=== PATIENT | female | born 1965 | race Caucasian/White ===

== ENCOUNTER → 2018-04-03 16:19 | Outpatient (CLI) | payer OTHER, MEDICAID, SELFPAY ==
[2018-04-03 17:44] LABS: Hematocrit 35.1 % (36-46)
[2018-04-03 17:48] LABS: BUN Creatinine Ratio 26.4 (6-22); Blood Urea Nitrogen 37 mg/dL (7-17); Calcium 9.4 mg/dL (8.4-10.2); Carbon Dioxide 28 mmol/L (22-32); Chloride 94 mmol/L (98-107); Estimated Glomerular Filt Rate 39.6 mL/min (>60); Glucose 335 mg/dL (70-100); HEMOLYSIS < 15 (0-50); Potassium 4.7 mmol/L (3.4-5.1); Sodium 135 mmol/L (137-145)
[2018-04-03 17:59] LABS: B Type Natriuretic Peptide < 100.0 (<100)
[2018-04-03 19:50] LABS: Protein (Total) Urine Random 8 mg/dL (0-12); Protein Creatinine Ratio Urine 0.13 GRAM/24H
[2018-04-03 20:05] LABS: Vitamin D 25 Hydroxy (D3) 39.8 ng/mL (30.0-100.0)
[2018-04-05 15:23] LABS: Parathyroid Hormone Int 100 pg/mL (14-64)
== END ==
PROVIDERS: Family Provider Student in an Organized Health Care Education/Training Program; PCP Student in an Organized Health Care Education/Training Program; Visit Provider Family Medicine
DX: F33.2 Major depressive disorder, recurrent severe without psychotic features (principal); N05.9 Unspecified nephritic syndrome with unspecified morphologic changes; N00.9 Acute nephritic syndrome with unspecified morphologic changes; D64.9 Anemia, unspecified; N25.81 Secondary hyperparathyroidism of renal origin; R80.9 Proteinuria, unspecified
CPT/HCPCS: 36415; 80048; 82306; 82570; 83880; 83970; 84156; 85014; 85018

== ENCOUNTER → 2018-05-01 16:17 | Outpatient (CLI) | payer OTHER, MEDICAID, SELFPAY ==
[2018-05-01 17:43] LABS: BUN Creatinine Ratio 24.2 (6-22); Blood Urea Nitrogen 29 mg/dL (7-17); Calcium 9.4 mg/dL (8.4-10.2); Carbon Dioxide 28 mmol/L (22-32); Chloride 93 mmol/L (98-107); Estimated Glomerular Filt Rate 47.4 mL/min (>60); Glucose 174 mg/dL (70-100); HEMOLYSIS < 15 (0-50); Potassium 3.9 mmol/L (3.4-5.1); Sodium 134 mmol/L (137-145)
[2018-05-01 17:46] LABS: B Type Natriuretic Peptide < 29.4 (<100)
== END ==
PROVIDERS: Family Provider Family Medicine; PCP Family Medicine; Visit Provider Student in an Organized Health Care Education/Training Program
DX: N05.9 Unspecified nephritic syndrome with unspecified morphologic changes (principal); I50.32 Chronic diastolic (congestive) heart failure
CPT/HCPCS: 36415; 80048; 83880

== ENCOUNTER → 2018-07-20 16:18 | Outpatient (CLI) | payer OTHER, MEDICAID, SELFPAY ==
[2018-07-20 17:23] LABS: Hematocrit 34.9 % (36-46); Hemoglobin 11.7 g/dL (12.0-16.0)
[2018-07-20 17:36] LABS: Creatinine Urine Random 71.2 mg/dL; HEMOLYSIS < 15 (0-50); Iron 53 ug/dL (37-170); Protein (Total) Urine Random 155 mg/dL (0-12); Protein Creatinine Ratio Urine 2.17 GRAM/24H
[2018-07-20 17:37] LABS: BUN Creatinine Ratio 21.1 (6-22); Blood Urea Nitrogen 19 mg/dL (7-17); Carbon Dioxide 24 mmol/L (22-32); Chloride 101 mmol/L (98-107); Estimated Glomerular Filt Rate > 60.0 mL/min (>60); Glucose 289 mg/dL (70-100); HEMOLYSIS < 15 (0-50); Potassium 4.8 mmol/L (3.4-5.1); Sodium 139 mmol/L (137-145)
[2018-07-20 17:46] LABS: Percent Iron Saturation 21 % (15-50); Total Iron Binding Capacity 256 ug/dL (265-497); Transferrin 201 mg/dL (206-381)
[2018-07-20 17:58] LABS: B Type Natriuretic Peptide < 29.4 (<100)
[2018-07-20 18:12] LABS: Ferritin 58.4 ng/mL (11.1-264)
[2018-07-22 14:35] LABS: Parathyroid Hormone Int 72 pg/mL (14-64)
== END ==
PROVIDERS: PCP Family Medicine; Visit Provider Student in an Organized Health Care Education/Training Program
DX: N05.9 Unspecified nephritic syndrome with unspecified morphologic changes (principal); I50.32 Chronic diastolic (congestive) heart failure; D50.0 Iron deficiency anemia secondary to blood loss (chronic); D64.9 Anemia, unspecified; N25.81 Secondary hyperparathyroidism of renal origin; R80.9 Proteinuria, unspecified
CPT/HCPCS: 36415; 80048; 82570; 82728; 83540; 83550; 83880; 83970; 84156; 85014; 85018

== ENCOUNTER → 2018-07-31 16:17 | Outpatient (CLI) | payer OTHER, MEDICAID, SELFPAY ==
[2018-07-31 17:24] LABS: Bilirubin Urine UA NEGATIVE (NEGATIVE); Color Urine UA YELLOW; Glucose Urine UA NEGATIVE (Normal); Ketones Urine UA NEGATIVE (NEGATIVE); Leukocyte Esterase Urine UA 2+ (NEGATIVE); Nitrite Urine UA NEGATIVE (Negative); Occult Blood Urine UA 1+ (Negative); Protein Urine UA 2+ (Negative); Specific Gravity Urine UA 1.015 (1.000-1.035); Urobilinogen Urine UA 0.2 E.U./dL (0.2); pH Urine UA 5.5 (4.5-8.0)
[2018-07-31 18:13] LABS: Appearance Urine UA Cloudy
[2018-07-31 18:17] LABS: Bacteria Urine Many (>30); RBC Urine 5-10/HPF (0-5/HPF); WBC Urine 10-30/HPF (0-5/HPF)
[2018-07-31 18:18] LABS: Culture Indicated Urine Specimen Cultured
[2018-07-31 18:37] LABS: Creatinine Urine Random 49.8 mg/dL; Protein (Total) Urine Random 112 mg/dL (0-12); Protein Creatinine Ratio Urine 2.24 GRAM/24H
== END ==
PROVIDERS: PCP Family Medicine; Visit Provider Student in an Organized Health Care Education/Training Program
DX: N30.00 Acute cystitis without hematuria (principal); R80.9 Proteinuria, unspecified
CPT/HCPCS: 81001; 82570; 84156; 87077; 87086; 87186

== ENCOUNTER → 2018-08-09 15:47 | Outpatient (CLI) | payer OTHER, MEDICAID, SELFPAY ==
[2018-08-09 17:08] LABS: BUN Creatinine Ratio 15.6 (6-22); Blood Urea Nitrogen 14 mg/dL (7-17); Carbon Dioxide 27 mmol/L (22-32); Chloride 99 mmol/L (98-107); Estimated Glomerular Filt Rate > 60.0 mL/min (>60); Glucose 170 mg/dL (70-100); HEMOLYSIS < 15 (0-50); Sodium 139 mmol/L (137-145)
[2018-08-09 18:28] LABS: Appearance Urine UA CLEAR; Bilirubin Urine UA NEGATIVE (NEGATIVE); Color Urine UA YELLOW; Glucose Urine UA NEGATIVE (Normal); Ketones Urine UA NEGATIVE (NEGATIVE); Leukocyte Esterase Urine UA NEGATIVE (NEGATIVE); Nitrite Urine UA NEGATIVE (Negative); Occult Blood Urine UA TRACE-INTACT (Negative); Protein Urine UA 2+ (Negative); Specific Gravity Urine UA <=1.005 (1.000-1.035); Urobilinogen Urine UA 0.2 E.U./dL (0.2); pH Urine UA 6.5 (4.5-8.0)
[2018-08-09 18:41] LABS: Creatinine Urine Random 25.2 mg/dL; Protein (Total) Urine Random 128 mg/dL (0-12); Protein Creatinine Ratio Urine 5.07 GRAM/24H
[2018-08-09 18:42] LABS: Bacteria Urine Few (2-10); Culture Indicated Urine Cult Not Indicated; RBC Urine 0-1/HPF (0-5/HPF); Squamous Epithelial Cell Urine 0-1 /HPF; WBC Urine 0-1/HPF (0-5/HPF)
[2018-08-11 11:52] LABS: DNA (DS) Antibody 5 IU/mL (< 5)
[2018-08-11 18:12] LABS: Complement C3 162 mg/dL (83-193)
[2018-08-12 14:47] LABS: Albumin 64 %; Protein/ Creatinine Ratio 4036 mg/g creat (21-161); Total Urine Protein 111 mg/dL (5-24); Urine Creatinine, Random 28 mg/dL (20-275)
[2018-08-12 20:06] LABS: ANA Screen NEGATIVE (Negative); DNA Antibody Crithidia IFA NEGATIVE (Negative); Rheumatoid Factor <14 IU/mL; Sjogren Antiboday SS-A <1.0 NEG AI (<1.0 NEGATIVE); Sjogren Antiboday SS-B <1.0 NEG AI (<1.0 NEGATIVE); Sm Antibody <1.0 NEG AI (<1.0 NEGATIVE); Sm/RNP Antibody <1.0 NEG AI (<1.0 NEGATIVE)
[2018-08-12 23:02] LABS: ANCA Screen Negative (Negative)
[2018-08-17 12:03] LABS: Albumin 3.6 g/dL (3.8-4.8); Alpha 1 Globulin 0.4 g/dL (0.2-0.3); Alpha 2 Globulin 0.7 g/dL (0.5-0.9); Beta 1 Globulin 0.4 g/dL (0.4-0.6); Gamma Globulin 0.9 g/dL (0.8-1.7); Protein, Total 6.5 g/dL (6.1-8.1)
== END ==
PROVIDERS: Family Provider Family Medicine; PCP Family Medicine; Visit Provider Student in an Organized Health Care Education/Training Program
DX: L93.2 Other local lupus erythematosus (principal); M31.30 Wegener's granulomatosis without renal involvement; N00.9 Acute nephritic syndrome with unspecified morphologic changes; N05.9 Unspecified nephritic syndrome with unspecified morphologic changes; D89.89 Other specified disorders involving the immune mechanism, not elsewhere classified; D47.2 Monoclonal gammopathy; N30.00 Acute cystitis without hematuria
CPT/HCPCS: 36415; 80048; 81001; 82570; 82784; 83520; 84155; 84156; 84165; 84166; 86021; 86038; 86160; 86225; 86334; 86335; 86430

== ENCOUNTER → 2018-09-20 16:59 | Outpatient (CLI) | payer OTHER, MEDICAID, SELFPAY | PROVIDERS: Family Provider Family Medicine; PCP Family Medicine; Visit Provider Physician Assistant | DX: N39.0 Urinary tract infection, site not specified (principal); R30.0 Dysuria | CPT/HCPCS: 87077; 87086; 87186 ==

== ENCOUNTER 2018-09-26 08:15 | Outpatient (RCR) | payer OTHER, MEDICAID, SELFPAY ==
--- NOTE | 2018-08-10 15:55 | PT.OIE ---
Current Diagnoses Sciatica, left side (08/10/18) Provider Visit Care Team Role Provider Type Desmond Bowers Family Provider Non-Staff Primary Care Provider Specialty: Medical Address: [address] [facility], [place], [address] Email: Oscar Rapp Attending Provider Non-Staff Specialty: Medical Address: [address] [place], [address] Email: Physical Therapy Initial Evaluation PT-OP-A Visit Information Start: 08/10/18 15:23 Freq: Status: Active Protocol: Document 08/10/18 15:26 [facility] (Rec: 08/10/18 15:54 [facility] [email or web address]) Out-Patient Physical Therapy Visit Information Visit Information Visit Type Initial Evaluation Visit Start Time 10:30 Visit Stop Time 11:15 Total Visit Minutes 45 Visit Number 1 Number of ELECTRIC MOTOR REPAIR SUPERVISOR Visits 0 Evaluation Information Evaluation Date 08/10/18 PT-OP-B Current Condition Start: 08/10/18 15:23 Freq: Status: Active Protocol: Document 08/10/18 15:26 [facility] (Rec: 08/10/18 15:54 [facility] [email or web address]) Current Condition History of Current Condition Onset Date chronic LBP but newer onset of left sciatica in the past year Current Complaints pain rated 8/10 left sacrum and low back with sciatica to posterior thigh History of Current Condition 53 year old female with c/o left sided sciatic pain that has become worse in the past year. She rates her pain as 8 /10 and it is L>R sacrum region with referred pain down the left posterior thigh to the knee. She suffered a CVA with right sided residual weakness 4 years ago and at that time she began walking with a cane for support. She is walking with the cane in her right hand right now due to her left sided pain. She reports that she has begun falling recently due to the pain and leg giving out on the left side. She has had a xray which she will bring in and is scheduled for a MRI. She notes a deformity was found on L5 but couldn't remember what it was. She has a past medical history of chronic kidney disease, CVA, diabetes, hyper lipidemia, hypertension, sleep apnea, numbness right side, asthma Future Testing and Treatments Planned MRI scheduled Treatment Goals Patient/Caregiver Goals to decrease pain levels and decrease sciatic symptoms Current Functional Impairments (Reported) Functional Limitations- ADL's limited in sitting duration Functional Limitations- Mobility/Gait pain with walking PT-OP-C Subjective Start: 08/10/18 15:23 Freq: Status: Active Protocol: Document 08/10/18 15:26 [facility] (Rec: 08/10/18 15:54 [facility] [email or web address]) OP-PT Pain Assessment Pain Assessment Grid Paper Pain Assessment Grid Completed Yes Location low back and left sciatica Intensity 8 Scale Used Numeric (1 - 10) Home Pain Medication Use Pain Medications Used No: unable to use pain meds do to chronic liver disease PT-OP-F Manual Assessment Start: 08/10/18 15:23 Freq: Status: Active Protocol: Document 08/10/18 15:26 [facility] (Rec: 08/10/18 15:54 [facility] [email or web address]) Manual Assessments Soft Tissue Assessment Soft Tissue Mobility Assessment very tight lower back musculature with visable guarding in the lumbar paraspinals Joint Mobility Assessment Joint Mobility Assessment the lumbar spine is visable held in a hyperextended position at L4-L5 elevated right pelvis in standing + SI dysfunction with march test, left leg shorter in supine PT-OP-K Range of Motion Start: 08/10/18 15:23 Freq: Status: Active Protocol: Document 08/10/18 15:26 [facility] (Rec: 08/10/18 15:54 [facility] [email or web address]) Lumbar Spine Range of Motion Lumbar Spine Active Testing Position Standing Flexion 30 Extension 0 Rotation Left 15 Rotation Right 15 Lateral Flexion Left 15 Lateral Flexion Right 20 ROM Limitations Soft Tissue Tightness Contracture Pain Comments very limited lumbar spine ROM , pain increased with extension and sidebend left PT-OP-L Special Tests Start: 08/10/18 15:54 Freq: Status: Active Protocol: Document 08/10/18 15:55 AM[facility] (Rec: 08/10/18 15:55 [facility] [email or web address]) Special Tests Lumbar Spine Special Tests Straight Leg Raise Test Results + left 65 deg PT-OP-M Strength Start: 08/10/18 15:23 Freq: Status: Active Protocol: Document 08/10/18 15:26 [facility] (Rec: 08/10/18 15:54 [facility] [email or web address]) Hip Strength Hip Manual Muscle Testing Right Flexion (L2) 3 Fair Abduction 3 Fair Left Flexion (L2) 2 Poor Abduction 2+ Poor+ PT-OP-R Modalities Start: 08/10/18 15:23 Freq: Status: Active Protocol: Document 08/10/18 15:26 [facility] (Rec: 08/10/18 15:54 [facility] [email or web address]) Electric Stimulation Electric Stimulation Interferential Current (IFC) Body Location left sacral region and low back Duration (Minutes) 15 Contraction Type Normal Hot Pack/Cold Pack Treatment Cold Pack Location low back Patient Position Hooklying PT-OP-T Assessment and Plan Start: 08/10/18 15:23 Freq: Status: Active Protocol: Document 08/10/18 15:26 [facility] (Rec: 08/10/18 15:54 [facility] [email or web address]) Physical Therapy Assessment Rehab Potential Rehabilitation Potential Fair Evaluation Complexity Number of Personal Factors/Comorbidities 3 or More Number of Body Systems Impaired 4 or More Clinical Presentation at Evaluation Evolving Impairments Impairments Activity Tolerance Functional Activities Functional Mobility Gait Pain Soft Tissue Mobility Strength Goals Four Impairment overall poor core strength/ support and decreased LE strength Atmospheric Drier Tender Goal (LTG) Beverley is instructed in a home exercise program for core support and LE strengthening LTG Duration 8 weeks + Three Impairment + SLR at 65 deg for sciatic symptoms on the left Atmospheric Drier Tender Goal (LTG) SLR is negative and Beverley notes decreased c/o sciatic symptoms Two Impairment very guarded lumbar spine with decreased ROM Atmospheric Drier Tender Goal (LTG) Improve lumbar spine ROM especially into flexion and decrease muscle guarding and spasm LTG Duration 8 weeks One Impairment LBP rated 8/10 with sciatic symptoms Short Term Goal (STG) Beverley has a reduction in LBP and is able to manage some of her symptoms with a gentle stretching program STG Duration 6 weeks Assessment Summary Assessment Beverley presents to physical therapy today with symptoms of left sided sciatic symptoms and LBP. She has a history of chronic low back pain but the sciatica is a newer onset. Sciatic symptoms go down the posterior thigh to knee. She has a history of CVA with right sided weakness and was using a cane due to this weakness but she has switched to the right hand now due to sciatic pain. She reports taking a few falls due to her left leg giving out. With examination today she is extremely guarded in the low back paraspinals with visable lumbar extension in standing. She has difficulty initiating flexion of her low back. Her right pelvis is elevated today and I did a little work to try and balance her SI joint. She was instructed in positioning for her lumbar spine to help take off pressure. She may be a good candidate for a home TENS unit as she is not able to use any pain meds due to her chronic kidney disease. Physical Therapy Plan Frequency and Duration Frequency of Treatment 2x/Week Duration of Treatment 8 weeks Plan of Care Start Date 08/10/18 Plan of Care End Date 10/05/18 Therapeutic Interventions Therapeutic Interventions Home Exercise Program Manual Therapy Neuromuscular Re-education Self-Care/Home Management Soft Tissue Mobilization Therapeutic Exercises Modalities Cold Pack/Ice Massage Next Visit Focus/Plan Next Note Type Treatment Note Next Visit Plan trial of US and seated lumbar flexion next visit. Await MRI results
--- NOTE | 2018-08-15 11:43 | PT.OTN ---
Current Diagnoses Sciatica, left side (08/15/18) Physical Therapy Treatment Note PT-OP-A Visit Information Start: 08/10/18 15:23 Freq: Status: Active Protocol: Document 08/15/18 10:41 LRN (Rec: 08/15/18 11:28 LRN [id number]) Out-Patient Physical Therapy Visit Information Visit Information Visit Type Treatment Note Visit Start Time 10:41 Visit Stop Time 11:31 Total Visit Minutes 50 Visit Number 2 Number of FOOT CUTTER Visits 0 Evaluation Information Evaluation Date 08/10/18 PT-OP-B Current Condition Start: 08/10/18 15:23 Freq: Status: Active Protocol: Document 08/10/18 15:26 [facility] (Rec: 08/10/18 15:54 [facility] [email or web address]) Current Condition History of Current Condition Onset Date chronic LBP but newer onset of left sciatica in the past year Current Complaints pain rated 8/10 left sacrum and low back with sciatica to posterior thigh History of Current Condition 53 year old female with c/o left sided sciatic pain that has become worse in the past year. She rates her pain as 8 /10 and it is L>R sacrum region with referred pain down the left posterior thigh to the knee. She suffered a CVA with right sided residual weakness 4 years ago and at that time she began walking with a cane for support. She is walking with the cane in her right hand right now due to her left sided pain. She reports that she has begun falling recently due to the pain and leg giving out on the left side. She has had a xray which she will bring in and is scheduled for a MRI. She notes a deformity was found on L5 but couldn't remember what it was. She has a past medical history of chronic kidney disease, CVA, diabetes, hyper lipidemia, hypertension, sleep apnea, numbness right side, asthma Future Testing and Treatments Planned MRI scheduled Treatment Goals Patient/Caregiver Goals to decrease pain levels and decrease sciatic symptoms Current Functional Impairments (Reported) Functional Limitations- ADL's limited in sitting duration Functional Limitations- Mobility/Gait pain with walking PT-OP-C Subjective Start: 08/10/18 15:23 Freq: Status: Active Protocol: Document 08/15/18 10:41 LRN (Rec: 08/15/18 11:28 LRN [id number]) OP-PT Subjective Patient Comments Patient Comments States E-Stim helped 1 hr. PT-OP-F Manual Assessment Start: 08/10/18 15:23 Freq: Status: Active Protocol: Document 08/10/18 15:26 [facility]H (Rec: 08/10/18 15:54 [facility] [email or web address]) Manual Assessments Soft Tissue Assessment Soft Tissue Mobility Assessment very tight lower back musculature with visable guarding in the lumbar paraspinals Joint Mobility Assessment Joint Mobility Assessment the lumbar spine is visable held in a hyperextended position at L4-L5 elevated right pelvis in standing + SI dysfunction with march test, left leg shorter in supine PT-OP-K Range of Motion Start: 08/10/18 15:23 Freq: Status: Active Protocol: Document 08/10/18 15:26 [facility]H (Rec: 08/10/18 15:54 [facility] [email or web address]) Lumbar Spine Range of Motion Lumbar Spine Active Testing Position Standing Flexion 30 Extension 0 Rotation Left 15 Rotation Right 15 Lateral Flexion Left 15 Lateral Flexion Right 20 ROM Limitations Soft Tissue Tightness Contracture Pain Comments very limited lumbar spine ROM , pain increased with extension and sidebend left PT-OP-L Special Tests Start: 08/10/18 15:54 Freq: Status: Active Protocol: Document 08/10/18 15:55 AMH (Rec: 08/10/18 15:55 [facility] [email or web address]) Special Tests Lumbar Spine Special Tests Straight Leg Raise Test Results + left 65 deg PT-OP-M Strength Start: 08/10/18 15:23 Freq: Status: Active Protocol: Document 08/10/18 15:26 AMH (Rec: 08/10/18 15:54 [facility] [email or web address]) Hip Strength Hip Manual Muscle Testing Right Flexion (L2) 3 Fair Abduction 3 Fair Left Flexion (L2) 2 Poor Abduction 2+ Poor+ PT-OP-Q Treatments Start: 08/15/18 11:31 Freq: Status: Active Protocol: Document 08/15/18 10:41 LRN (Rec: 08/15/18 11:34 LRN [id number]) Therapeutic Exercises Sidelying Exercises TA bracing Sidelying Exercise Name Belly button to spine Side left Reps/Minutes 6 Comments Held on L side due to increase pain Sitting Exercises Lumbar flexion Sitting Exercise Name 1) Rounding low back, 2) reaching for floor Reps/Minutes 6 Comments Pt had better lumbar stretch with rounding of back. Other Exercises Transfer practice Other Exercise Name Sit to sidelie Side right Comments Good response PT-OP-R Modalities Start: 08/10/18 15:23 Freq: Status: Active Protocol: Document 08/15/18 10:41 LRN (Rec: 08/15/18 11:28 LRN [id number]) Ultrasound Therapy Treatment L LBP/SIJ Treatment Duration (minutes) 8 Patient Position Sidelying Coupling Medium Ultrasound Gel Applicator Size (cm2) 5 Frequency Setting (mHz) 1 Mode Setting Pulsed Intensity Setting (w/cm2) 1.5 PT-OP-T Assessment and Plan Start: 08/10/18 15:23 Freq: Status: Active Protocol: Document 08/15/18 10:41 LRN (Rec: 08/15/18 11:28 LRN [id number]) Physical Therapy Assessment Assessment Summary Assessment Beverley presents to physical therapy today with symptoms of left sided sciatic symptoms and LBP. She has a history of CVA with right sided weakness and came to therapy without a cane. She was able to perform lumbar flexion of her low back better with slumping vs reaching for floor. She would be a good candidate for a home TENS unit as she is not able to use any pain meds due to her chronic kidney disease . Extra time taken for pt to mobilize. Physical Therapy Plan Frequency and Duration Frequency of Treatment 2x/Week Duration of Treatment 8 weeks Plan of Care Start Date 08/10/18 Plan of Care End Date 10/05/18 Next Visit Focus/Plan Next Note Type Treatment Note Next Visit Plan Assess response to US and new ex's of lumbar flexion stretch and core stabilization. Assess pt recall of proper sit to sidelie transfer. Training for correct Body mechanics for her job. Awaiting MRI results.
--- NOTE | 2018-08-21 15:31 | PT.OTN ---
Current Diagnoses Sciatica, left side (08/21/18) Physical Therapy Treatment Note PT-OP-A Visit Information Start: 08/10/18 15:23 Freq: Status: Active Protocol: Document 08/21/18 13:41 EA (Rec: 08/21/18 13:46 EA [id number]) Out-Patient Physical Therapy Visit Information Visit Information Visit Type Treatment Note Visit Start Time 13:00 Visit Stop Time 13:45 Total Visit Minutes 45 Visit Number 3 Number of COMPUTER GAME PROGRAMMER Visits 0 PT-OP-B Current Condition Start: 08/10/18 15:23 Freq: Status: Active Protocol: Document 08/10/18 15:26 AMH (Rec: 08/10/18 15:54 [facility] [email or web address]) Current Condition History of Current Condition Onset Date chronic LBP but newer onset of left sciatica in the past year Current Complaints pain rated 8/10 left sacrum and low back with sciatica to posterior thigh History of Current Condition 53 year old female with c/o left sided sciatic pain that has become worse in the past year. She rates her pain as 8 /10 and it is L>R sacrum region with referred pain down the left posterior thigh to the knee. She suffered a CVA with right sided residual weakness 4 years ago and at that time she began walking with a cane for support. She is walking with the cane in her right hand right now due to her left sided pain. She reports that she has begun falling recently due to the pain and leg giving out on the left side. She has had a xray which she will bring in and is scheduled for a MRI. She notes a deformity was found on L5 but couldn't remember what it was. She has a past medical history of chronic kidney disease, CVA, diabetes, hyper lipidemia, hypertension, sleep apnea, numbness right side, asthma Future Testing and Treatments Planned MRI scheduled Treatment Goals Patient/Caregiver Goals to decrease pain levels and decrease sciatic symptoms Current Functional Impairments (Reported) Functional Limitations- ADL's limited in sitting duration Functional Limitations- Mobility/Gait pain with walking PT-OP-C Subjective Start: 08/10/18 15:23 Freq: Status: Active Protocol: Document 08/21/18 13:41 EA (Rec: 08/21/18 13:46 EA [id number]) OP-PT Subjective Patient Comments Patient Comments Pt reports low back is quite better as of today. Patient Reported Progress Improving PT-OP-F Manual Assessment Start: 08/10/18 15:23 Freq: Status: Active Protocol: Document 08/10/18 15:26 [facility] (Rec: 08/10/18 15:54 AMH [email or web address]) Manual Assessments Soft Tissue Assessment Soft Tissue Mobility Assessment very tight lower back musculature with visable guarding in the lumbar paraspinals Joint Mobility Assessment Joint Mobility Assessment the lumbar spine is visable held in a hyperextended position at L4-L5 elevated right pelvis in standing + SI dysfunction with march test, left leg shorter in supine PT-OP-K Range of Motion Start: 08/10/18 15:23 Freq: Status: Active Protocol: Document 08/10/18 15:26 AMH (Rec: 08/10/18 15:54 [facility]H [email or web address]) Lumbar Spine Range of Motion Lumbar Spine Active Testing Position Standing Flexion 30 Extension 0 Rotation Left 15 Rotation Right 15 Lateral Flexion Left 15 Lateral Flexion Right 20 ROM Limitations Soft Tissue Tightness Contracture Pain Comments very limited lumbar spine ROM , pain increased with extension and sidebend left PT-OP-L Special Tests Start: 08/10/18 15:54 Freq: Status: Active Protocol: Document 08/10/18 15:55 AMH (Rec: 08/10/18 15:55 AMH [email or web address]) Special Tests Lumbar Spine Special Tests Straight Leg Raise Test Results + left 65 deg PT-OP-M Strength Start: 08/10/18 15:23 Freq: Status: Active Protocol: Document 08/10/18 15:26 AMH (Rec: 08/10/18 15:54 [facility]H [email or web address]) Hip Strength Hip Manual Muscle Testing Right Flexion (L2) 3 Fair Abduction 3 Fair Left Flexion (L2) 2 Poor Abduction 2+ Poor+ PT-OP-Q Treatments Start: 08/15/18 11:31 Freq: Status: Active Protocol: Document 08/21/18 13:41 EA (Rec: 08/21/18 13:46 EA [id number]) Cardio Equipment Recumbent Stepper (Sci-Fit) Duration (Minutes) 5 Resistance 2 Seat Position 12 Therapeutic Exercises Supine Exercises 1 Supine Exercise Name Trunk rotation Reps/Minutes x 10 reps Sitting Exercises 1 Sitting Exercise Name Fwd bend with right rotation Reps/Minutes x 5 SH x 10 reps Comments Mcbain table heigth Lumbar flexion Sitting Exercise Name 1) Rounding low back, 2) reaching for floor Reps/Minutes x 10 reps x 5 SH Comments STM: rolling to left lower back while leaing forward Manual Therapy Treatment Soft Tissue Mobilization 1 Body Location Left paralumbars; SI joint Mobilization Type Rolling Sustained Pressure Trigger Point Release Intensity/Depth Moderate Body Position Sitting on EOB PT-OP-R Modalities Start: 08/10/18 15:23 Freq: Status: Active Protocol: Document 08/21/18 13:41 EA (Rec: 08/21/18 13:46 EA [id number]) Electric Stimulation Electric Stimulation Interferential Current (IFC) Body Location left sacral region and low back Duration (Minutes) 15 Contraction Type Normal PT-OP-T Assessment and Plan Start: 08/10/18 15:23 Freq: Status: Active Protocol: Document 08/21/18 13:41 EA (Rec: 08/21/18 13:46 EA [id number]) Physical Therapy Assessment Assessment Summary Assessment Tolerated treatment well with minor discomfort during manual therapy. Physical Therapy Plan Next Visit Focus/Plan Next Note Type Treatment Note
--- NOTE | 2018-08-29 16:59 | PT.OTN ---
Current Diagnoses Sciatica, left side (08/29/18) Physical Therapy Treatment Note PT-OP-A Visit Information Start: 08/10/18 15:23 Freq: Status: Active Protocol: Document 08/29/18 15:51 EA (Rec: 08/29/18 15:58 EA [id number]) Out-Patient Physical Therapy Visit Information Visit Information Visit Type Treatment Note Visit Start Time 15:15 Visit Stop Time 16:00 Total Visit Minutes 45 Visit Number 5 Number of PHOTOCOPYING EQUIPMENT MECHANIC Visits 0 PT-OP-B Current Condition Start: 08/10/18 15:23 Freq: Status: Active Protocol: Document 08/10/18 15:26 AMH (Rec: 08/10/18 15:54 AMH [email or web address]) Current Condition History of Current Condition Onset Date chronic LBP but newer onset of left sciatica in the past year Current Complaints pain rated 8/10 left sacrum and low back with sciatica to posterior thigh History of Current Condition 53 year old female with c/o left sided sciatic pain that has become worse in the past year. She rates her pain as 8 /10 and it is L>R sacrum region with referred pain down the left posterior thigh to the knee. She suffered a CVA with right sided residual weakness 4 years ago and at that time she began walking with a cane for support. She is walking with the cane in her right hand right now due to her left sided pain. She reports that she has begun falling recently due to the pain and leg giving out on the left side. She has had a xray which she will bring in and is scheduled for a MRI. She notes a deformity was found on L5 but couldn't remember what it was. She has a past medical history of chronic kidney disease, CVA, diabetes, hyper lipidemia, hypertension, sleep apnea, numbness right side, asthma Future Testing and Treatments Planned MRI scheduled Treatment Goals Patient/Caregiver Goals to decrease pain levels and decrease sciatic symptoms Current Functional Impairments (Reported) Functional Limitations- ADL's limited in sitting duration Functional Limitations- Mobility/Gait pain with walking PT-OP-C Subjective Start: 08/10/18 15:23 Freq: Status: Active Protocol: Document 08/29/18 15:51 EA (Rec: 08/29/18 15:58 EA [id number]) OP-PT Subjective Patient Comments Patient Comments Pt reports woke up this morning with low back pain is increased; states she has been uding TENS and performing HEP . Patient Reported Progress Same PT-OP-F Manual Assessment Start: 08/10/18 15:23 Freq: Status: Active Protocol: Document 08/10/18 15:26 AMH (Rec: 08/10/18 15:54 AMH [email or web address]) Manual Assessments Soft Tissue Assessment Soft Tissue Mobility Assessment very tight lower back musculature with visable guarding in the lumbar paraspinals Joint Mobility Assessment Joint Mobility Assessment the lumbar spine is visable held in a hyperextended position at L4-L5 elevated right pelvis in standing + SI dysfunction with march test, left leg shorter in supine PT-OP-K Range of Motion Start: 08/10/18 15:23 Freq: Status: Active Protocol: Document 08/10/18 15:26 AMH (Rec: 08/10/18 15:54 AMH [email or web address]) Lumbar Spine Range of Motion Lumbar Spine Active Testing Position Standing Flexion 30 Extension 0 Rotation Left 15 Rotation Right 15 Lateral Flexion Left 15 Lateral Flexion Right 20 ROM Limitations Soft Tissue Tightness Contracture Pain Comments very limited lumbar spine ROM , pain increased with extension and sidebend left PT-OP-L Special Tests Start: 08/10/18 15:54 Freq: Status: Active Protocol: Document 08/10/18 15:55 AMH (Rec: 08/10/18 15:55 AMH [email or web address]) Special Tests Lumbar Spine Special Tests Straight Leg Raise Test Results + left 65 deg PT-OP-M Strength Start: 08/10/18 15:23 Freq: Status: Active Protocol: Document 08/10/18 15:26 AMH (Rec: 08/10/18 15:54 AMH [email or web address]) Hip Strength Hip Manual Muscle Testing Right Flexion (L2) 3 Fair Abduction 3 Fair Left Flexion (L2) 2 Poor Abduction 2+ Poor+ PT-OP-Q Treatments Start: 08/15/18 11:31 Freq: Status: Active Protocol: Document 08/29/18 15:51 EA (Rec: 08/29/18 15:58 EA [id number]) Cardio Equipment Recumbent Stepper (Sci-Fit) Duration (Minutes) 7 Resistance 2 Seat Position 12 Therapeutic Exercises Supine Exercises 3 Supine Exercise Name PPT with SLR Reps/Minutes x 5 reps x 5 sets 2 Supine Exercise Name PPT Reps/Minutes x 5SH x 5 reps 1 Supine Exercise Name Trunk rotation Reps/Minutes x 10 reps Sitting Exercises 1 Sitting Exercise Name Fwd bend with right rotation Reps/Minutes x 5 SH x 10 reps Comments [place] table heigth Lumbar flexion Sitting Exercise Name 1) Rounding low back, 2) reaching for floor Reps/Minutes x 10 reps x 5 SH Comments STM: rolling to left lower back while leaing forward Manual Therapy Treatment Soft Tissue Mobilization 1 Body Location Left paralumbars; SI joint Mobilization Type Rolling Sustained Pressure Trigger Point Release Intensity/Depth Moderate Body Position Sitting on EOB PT-OP-R Modalities Start: 08/10/18 15:23 Freq: Status: Active Protocol: Document 08/29/18 15:51 EA (Rec: 08/29/18 15:58 EA [id number]) Electric Stimulation Electric Stimulation Interferential Current (IFC) Body Location left sacral region and low back Duration (Minutes) 15 Contraction Type Normal Combined With Heat/Cold Hot Pack Hot Pack/Cold Pack Treatment Hot Pack Patient Position Sitting Treatment Duration (minutes) 15 Patient Tolerance Good PT-OP-T Assessment and Plan Start: 08/10/18 15:23 Freq: Status: Active Protocol: Document 08/29/18 15:51 EA (Rec: 08/29/18 15:58 EA [id number]) Physical Therapy Assessment Assessment Summary Assessment Tenderness to left low back was lessen after manual PT. advised to try how pack at home instead of ICE. Tolerated treatment with moderate discomfort at the beginning of STM. Physical Therapy Plan Next Visit Focus/Plan Next Note Type Treatment Note Next Visit Plan Continue with current plan.
--- NOTE | 2018-09-01 10:00 | PT.OTN ---
Current Diagnoses Sciatica, left side (09/01/18) Physical Therapy Treatment Note PT-OP-A Visit Information Start: 08/10/18 15:23 Freq: Status: Active Protocol: Document 09/01/18 09:53 SA (Rec: 09/01/18 10:00 SA [email or web address]) Out-Patient Physical Therapy Visit Information Visit Information Visit Type Treatment Note Visit Start Time 08:15 Visit Stop Time 09:03 Total Visit Minutes 48 Visit Number 6 Number of LABORATORY MECHANIC HELPER Visits 1 PT-OP-B Current Condition Start: 08/10/18 15:23 Freq: Status: Active Protocol: Document 08/10/18 15:26 AMH (Rec: 08/10/18 15:54 AMH [email or web address]) Current Condition History of Current Condition Onset Date chronic LBP but newer onset of left sciatica in the past year Current Complaints pain rated 8/10 left sacrum and low back with sciatica to posterior thigh History of Current Condition 53 year old female with c/o left sided sciatic pain that has become worse in the past year. She rates her pain as 8 /10 and it is L>R sacrum region with referred pain down the left posterior thigh to the knee. She suffered a CVA with right sided residual weakness 4 years ago and at that time she began walking with a cane for support. She is walking with the cane in her right hand right now due to her left sided pain. She reports that she has begun falling recently due to the pain and leg giving out on the left side. She has had a xray which she will bring in and is scheduled for a MRI. She notes a deformity was found on L5 but couldn't remember what it was. She has a past medical history of chronic kidney disease, CVA, diabetes, hyper lipidemia, hypertension, sleep apnea, numbness right side, asthma Future Testing and Treatments Planned MRI scheduled Treatment Goals Patient/Caregiver Goals to decrease pain levels and decrease sciatic symptoms Current Functional Impairments (Reported) Functional Limitations- ADL's limited in sitting duration Functional Limitations- Mobility/Gait pain with walking PT-OP-C Subjective Start: 08/10/18 15:23 Freq: Status: Active Protocol: Document 09/01/18 09:53 SA (Rec: 09/01/18 10:00 SA [email or web address]) OP-PT Subjective Patient Comments Patient Comments Pt reports using ice and TENS unit at home to manage pain with some success. Patient Reported Progress Same PT-OP-F Manual Assessment Start: 08/10/18 15:23 Freq: Status: Active Protocol: Document 08/10/18 15:26 AMH (Rec: 08/10/18 15:54 AMH [email or web address]) Manual Assessments Soft Tissue Assessment Soft Tissue Mobility Assessment very tight lower back musculature with visable guarding in the lumbar paraspinals Joint Mobility Assessment Joint Mobility Assessment the lumbar spine is visable held in a hyperextended position at L4-L5 elevated right pelvis in standing + SI dysfunction with march test, left leg shorter in supine PT-OP-K Range of Motion Start: 08/10/18 15:23 Freq: Status: Active Protocol: Document 08/10/18 15:26 AMH (Rec: 08/10/18 15:54 AMH [email or web address]) Lumbar Spine Range of Motion Lumbar Spine Active Testing Position Standing Flexion 30 Extension 0 Rotation Left 15 Rotation Right 15 Lateral Flexion Left 15 Lateral Flexion Right 20 ROM Limitations Soft Tissue Tightness Contracture Pain Comments very limited lumbar spine ROM , pain increased with extension and sidebend left PT-OP-L Special Tests Start: 08/10/18 15:54 Freq: Status: Active Protocol: Document 08/10/18 15:55 AMH (Rec: 08/10/18 15:55 AMH [email or web address]) Special Tests Lumbar Spine Special Tests Straight Leg Raise Test Results + left 65 deg PT-OP-M Strength Start: 08/10/18 15:23 Freq: Status: Active Protocol: Document 08/10/18 15:26 AMH (Rec: 08/10/18 15:54 AMH [email or web address]) Hip Strength Hip Manual Muscle Testing Right Flexion (L2) 3 Fair Abduction 3 Fair Left Flexion (L2) 2 Poor Abduction 2+ Poor+ PT-OP-Q Treatments Start: 08/15/18 11:31 Freq: Status: Active Protocol: Document 09/01/18 09:53 SA (Rec: 09/01/18 10:00 SA [email or web address]) Cardio Equipment Recumbent Stepper (Sci-Fit) Duration (Minutes) 7 Resistance 2 Seat Position 12 Therapeutic Exercises Supine Exercises 3 Supine Exercise Name PPT with SLR Reps/Minutes x 5 reps x 5 sets 2 Supine Exercise Name PPT Reps/Minutes x 5SH x 5 reps 1 Supine Exercise Name Trunk rotation Reps/Minutes 12 Sitting Exercises 1 Sitting Exercise Name Fwd bend with right rotation Reps/Minutes x 5 SH x 10 reps Comments [place] table heigth Lumbar flexion Sitting Exercise Name 1) Rounding low back, 2) reaching for floor Reps/Minutes x 10 reps x 5 SH Comments STM: rolling to left lower back while leaing forward Manual Therapy Treatment Soft Tissue Mobilization 1 Body Location Left paralumbars; SI joint Mobilization Type Rolling Sustained Pressure Trigger Point Release Intensity/Depth Moderate Body Position Sitting on EOB Comments Pt reports feeling relief after last manual treatment. PT-OP-R Modalities Start: 08/10/18 15:23 Freq: Status: Active Protocol: Document 09/01/18 09:53 SA (Rec: 09/01/18 10:00 SA [email or web address]) Electric Stimulation Electric Stimulation Interferential Current (IFC) Body Location left sacral region and low back Duration (Minutes) 15 Contraction Type Normal Patient Position Sitting Combined With Heat/Cold Cold Pack Comments Pt prefers CP PT-OP-T Assessment and Plan Start: 08/10/18 15:23 Freq: Status: Active Protocol: Document 09/01/18 09:53 SA (Rec: 09/01/18 10:00 SA [email or web address]) Physical Therapy Assessment Assessment Summary Assessment Gradual improvement of activity tolerance and decreasing symptoms. Pt states she is consistent with HEP and use of CP and TENS at home for pain relief. Physical Therapy Plan Next Visit Focus/Plan Next Note Type Treatment Note Next Visit Plan Continue to progress core stabilization program and manual therapy.
--- NOTE | 2018-09-07 17:54 | PT.OTN ---
Current Diagnoses Sciatica, left side (09/07/18) Physical Therapy Treatment Note PT-OP-A Visit Information Start: 08/10/18 15:23 Freq: Status: Active Protocol: Document 09/07/18 16:00 HH (Rec: 09/07/18 17:54 HH [email or web address]) Out-Patient Physical Therapy Visit Information Visit Information Visit Type Treatment Note Visit Start Time 16:00 Visit Stop Time 16:45 Total Visit Minutes 45 Visit Number 7 Number of GROVE WORKER Visits 1 PT-OP-B Current Condition Start: 08/10/18 15:23 Freq: Status: Active Protocol: Document 08/10/18 15:26 AMH (Rec: 08/10/18 15:54 AMH [email or web address]) Current Condition History of Current Condition Onset Date chronic LBP but newer onset of left sciatica in the past year Current Complaints pain rated 8/10 left sacrum and low back with sciatica to posterior thigh History of Current Condition 53 year old female with c/o left sided sciatic pain that has become worse in the past year. She rates her pain as 8 /10 and it is L>R sacrum region with referred pain down the left posterior thigh to the knee. She suffered a CVA with right sided residual weakness 4 years ago and at that time she began walking with a cane for support. She is walking with the cane in her right hand right now due to her left sided pain. She reports that she has begun falling recently due to the pain and leg giving out on the left side. She has had a xray which she will bring in and is scheduled for a MRI. She notes a deformity was found on L5 but couldn't remember what it was. She has a past medical history of chronic kidney disease, CVA, diabetes, hyper lipidemia, hypertension, sleep apnea, numbness right side, asthma Future Testing and Treatments Planned MRI scheduled Treatment Goals Patient/Caregiver Goals to decrease pain levels and decrease sciatic symptoms Current Functional Impairments (Reported) Functional Limitations- ADL's limited in sitting duration Functional Limitations- Mobility/Gait pain with walking PT-OP-C Subjective Start: 08/10/18 15:23 Freq: Status: Active Protocol: Document 09/07/18 16:00 HH (Rec: 09/07/18 17:54 HH [email or web address]) OP-PT Subjective Patient Comments Patient Comments Pt states she uses TENS and ICE 2/3 times to manage pain. But pain has been the same lately and gets worse towards the end of the day. Patient Reported Progress Same PT-OP-F Manual Assessment Start: 08/10/18 15:23 Freq: Status: Active Protocol: Document 08/10/18 15:26 AMH (Rec: 08/10/18 15:54 AMH [email or web address]) Manual Assessments Soft Tissue Assessment Soft Tissue Mobility Assessment very tight lower back musculature with visable guarding in the lumbar paraspinals Joint Mobility Assessment Joint Mobility Assessment the lumbar spine is visable held in a hyperextended position at L4-L5 elevated right pelvis in standing + SI dysfunction with march test, left leg shorter in supine PT-OP-K Range of Motion Start: 08/10/18 15:23 Freq: Status: Active Protocol: Document 08/10/18 15:26 AMH (Rec: 08/10/18 15:54 AMH [email or web address]) Lumbar Spine Range of Motion Lumbar Spine Active Testing Position Standing Flexion 30 Extension 0 Rotation Left 15 Rotation Right 15 Lateral Flexion Left 15 Lateral Flexion Right 20 ROM Limitations Soft Tissue Tightness Contracture Pain Comments very limited lumbar spine ROM , pain increased with extension and sidebend left PT-OP-L Special Tests Start: 08/10/18 15:54 Freq: Status: Active Protocol: Document 08/10/18 15:55 AMH (Rec: 08/10/18 15:55 AMH [email or web address]) Special Tests Lumbar Spine Special Tests Straight Leg Raise Test Results + left 65 deg PT-OP-M Strength Start: 08/10/18 15:23 Freq: Status: Active Protocol: Document 08/10/18 15:26 AMH (Rec: 08/10/18 15:54 AMH [email or web address]) Hip Strength Hip Manual Muscle Testing Right Flexion (L2) 3 Fair Abduction 3 Fair Left Flexion (L2) 2 Poor Abduction 2+ Poor+ PT-OP-Q Treatments Start: 08/15/18 11:31 Freq: Status: Active Protocol: Document 09/07/18 16:00 HH (Rec: 09/07/18 17:54 HH [email or web address]) Therapeutic Exercises Supine Exercises 4 Supine Exercise Name resisted hip fall out to L Reps/Minutes 10 x 2 1 Supine Exercise Name Trunk rotation Reps/Minutes 12 Standing Exercises R trunk SB Standing Exercise Name R trunk SB Comments UE support on table Manual Therapy Treatment Soft Tissue Mobilization 1 Body Location Left paralumbars; SI joint Mobilization Type Rolling Sustained Pressure Trigger Point Release Intensity/Depth Moderate Body Position Sitting on EOB Comments along with trunk L rotation and R SB Neuro Re-Education Treatment Other Activities MET Details MET for trunk ROT, Ext Reps/Duration 10 mins PT-OP-R Modalities Start: 08/10/18 15:23 Freq: Status: Active Protocol: Document 09/01/18 09:53 SA (Rec: 09/01/18 10:00 SA [email or web address]) Electric Stimulation Electric Stimulation Interferential Current (IFC) Body Location left sacral region and low back Duration (Minutes) 15 Contraction Type Normal Patient Position Sitting Combined With Heat/Cold Cold Pack Comments Pt prefers CP PT-OP-T Assessment and Plan Start: 08/10/18 15:23 Freq: Status: Active Protocol: Document 09/07/18 16:00 HH (Rec: 09/07/18 17:54 HH [email or web address]) Physical Therapy Assessment Assessment Summary Assessment Pt cont c/o pain and episodes of L knee give out after prolonged WB activities. Pt julio césar tx very today with increased L trunk ROT after MET and resistive hip fall to increase engagement of TA and lumbar stabilizers. New HEP is given with R trunk SB and R ROT to facilitate opening of L lumbar and SI joint. Recommended to do HEP more often with decrease use of TENs to once a day. Physical Therapy Plan Next Visit Focus/Plan Next Note Type Treatment Note Next Visit Plan cont to trunk segmental control with engagement of turnk stabilizers
--- NOTE | 2018-09-15 15:49 | PT.OTN ---
Current Diagnoses Sciatica, left side (09/15/18) Physical Therapy Treatment Note PT-OP-A Visit Information Start: 08/10/18 15:23 Freq: Status: Active Protocol: Document 09/15/18 15:15 DCW (Rec: 09/15/18 15:41 DCW [id number]) Out-Patient Physical Therapy Visit Information Visit Information Visit Type Treatment Note Visit Start Time 15:15 Visit Stop Time 16:00 Total Visit Minutes 45 Visit Number 8 Number of PM HEAD COOK Visits 0 PT-OP-B Current Condition Start: 08/10/18 15:23 Freq: Status: Active Protocol: Document 08/10/18 15:26 AMH (Rec: 08/10/18 15:54 AMH [email or web address]) Current Condition History of Current Condition Onset Date chronic LBP but newer onset of left sciatica in the past year Current Complaints pain rated 8/10 left sacrum and low back with sciatica to posterior thigh History of Current Condition 53 year old female with c/o left sided sciatic pain that has become worse in the past year. She rates her pain as 8 /10 and it is L>R sacrum region with referred pain down the left posterior thigh to the knee. She suffered a CVA with right sided residual weakness 4 years ago and at that time she began walking with a cane for support. She is walking with the cane in her right hand right now due to her left sided pain. She reports that she has begun falling recently due to the pain and leg giving out on the left side. She has had a xray which she will bring in and is scheduled for a MRI. She notes a deformity was found on L5 but couldn't remember what it was. She has a past medical history of chronic kidney disease, CVA, diabetes, hyper lipidemia, hypertension, sleep apnea, numbness right side, asthma Future Testing and Treatments Planned MRI scheduled Treatment Goals Patient/Caregiver Goals to decrease pain levels and decrease sciatic symptoms Current Functional Impairments (Reported) Functional Limitations- ADL's limited in sitting duration Functional Limitations- Mobility/Gait pain with walking PT-OP-C Subjective Start: 08/10/18 15:23 Freq: Status: Active Protocol: Document 09/15/18 15:15 DCW (Rec: 09/15/18 15:41 DCW [id number]) OP-PT Subjective Patient Comments Patient Comments Pt reports that her pain and discomfort just goes up and down so much, she doesn't know if she is improving any. PT-OP-F Manual Assessment Start: 08/10/18 15:23 Freq: Status: Active Protocol: Document 08/10/18 15:26 AMH (Rec: 08/10/18 15:54 AMH [email or web address]) Manual Assessments Soft Tissue Assessment Soft Tissue Mobility Assessment very tight lower back musculature with visable guarding in the lumbar paraspinals Joint Mobility Assessment Joint Mobility Assessment the lumbar spine is visable held in a hyperextended position at L4-L5 elevated right pelvis in standing + SI dysfunction with march test, left leg shorter in supine PT-OP-K Range of Motion Start: 08/10/18 15:23 Freq: Status: Active Protocol: Document 08/10/18 15:26 AMH (Rec: 08/10/18 15:54 AMH [email or web address]) Lumbar Spine Range of Motion Lumbar Spine Active Testing Position Standing Flexion 30 Extension 0 Rotation Left 15 Rotation Right 15 Lateral Flexion Left 15 Lateral Flexion Right 20 ROM Limitations Soft Tissue Tightness Contracture Pain Comments very limited lumbar spine ROM , pain increased with extension and sidebend left PT-OP-L Special Tests Start: 08/10/18 15:54 Freq: Status: Active Protocol: Document 08/10/18 15:55 AMH (Rec: 08/10/18 15:55 AMH [email or web address]) Special Tests Lumbar Spine Special Tests Straight Leg Raise Test Results + left 65 deg PT-OP-M Strength Start: 08/10/18 15:23 Freq: Status: Active Protocol: Document 08/10/18 15:26 AMH (Rec: 08/10/18 15:54 AMH [email or web address]) Hip Strength Hip Manual Muscle Testing Right Flexion (L2) 3 Fair Abduction 3 Fair Left Flexion (L2) 2 Poor Abduction 2+ Poor+ PT-OP-Q Treatments Start: 08/15/18 11:31 Freq: Status: Active Protocol: Document 09/15/18 15:15 DCW (Rec: 09/15/18 15:41 DCW [id number]) Cardio Equipment Recumbent Stepper (Sci-Fit) Duration (Minutes) 5 Resistance 3 Seat Position 12 Gym Equipment Therapeutic Ball Hip Flexion Exercise Details Hip flexion/extension /c feet on T-ball Ball Size/Color Blue - 45 cm Body Position Supine Lumbar Rotation Exercise Details Supine rotation /c feet on T- ball Ball Size/Color Blue - 45 cm Body Position Supine Therapeutic Exercises Sitting Exercises Lumbar flexion Sitting Exercise Name 1) Rounding low back, 2) reaching for floor Reps/Minutes x 10 reps x 5 SH Comments STM: rolling to left lower back while leaing forward Standing Exercises R trunk Rotation Standing Exercise Name R trunk Rotation Comments UE support on table R trunk SB Standing Exercise Name R trunk SB Comments UE support on table Manual Therapy Treatment Soft Tissue Mobilization 1 Body Location Left paralumbars; SI joint Mobilization Type Rolling Sustained Pressure Trigger Point Release Intensity/Depth Moderate Body Position Sitting on EOB Comments along with trunk L rotation and R SB PT-OP-R Modalities Start: 08/10/18 15:23 Freq: Status: Active Protocol: Document 09/15/18 15:15 DCW (Rec: 09/15/18 15:42 DCW [id number]) Electric Stimulation Electric Stimulation Interferential Current (IFC) Body Location left sacral region and low back Duration (Minutes) 15 Contraction Type Normal Patient Position Sitting Combined With Heat/Cold Cold Pack PT-OP-T Assessment and Plan Start: 08/10/18 15:23 Freq: Status: Active Protocol: Document 09/15/18 15:15 DCW (Rec: 09/15/18 15:41 DCW [id number]) Physical Therapy Assessment Assessment Summary Assessment Pt tolerated additional treatments well today, continues to feel increased tenderness in L paraspinals with STM Physical Therapy Plan Next Visit Focus/Plan Next Note Type Treatment Note Next Visit Plan cont to trunk segmental control with engagement of turnk stabilizers
--- NOTE | 2018-09-18 10:28 | PT.OTN ---
Current Diagnoses Sciatica, left side (09/18/18) Physical Therapy Treatment Note PT-OP-A Visit Information Start: 08/10/18 15:23 Freq: Status: Active Protocol: Document 09/18/18 08:22 EA (Rec: 09/18/18 09:08 EA [id number]) Out-Patient Physical Therapy Visit Information Visit Information Visit Type Treatment Note Visit Start Time 08:15 Visit Stop Time 09:05 Total Visit Minutes 48 Visit Number 9 Number of STUDENT UNION CONSULTANT Visits 1 PT-OP-B Current Condition Start: 08/10/18 15:23 Freq: Status: Active Protocol: Document 08/10/18 15:26 AMH (Rec: 08/10/18 15:54 AMH [email or web address]) Current Condition History of Current Condition Onset Date chronic LBP but newer onset of left sciatica in the past year Current Complaints pain rated 8/10 left sacrum and low back with sciatica to posterior thigh History of Current Condition 53 year old female with c/o left sided sciatic pain that has become worse in the past year. She rates her pain as 8 /10 and it is L>R sacrum region with referred pain down the left posterior thigh to the knee. She suffered a CVA with right sided residual weakness 4 years ago and at that time she began walking with a cane for support. She is walking with the cane in her right hand right now due to her left sided pain. She reports that she has begun falling recently due to the pain and leg giving out on the left side. She has had a xray which she will bring in and is scheduled for a MRI. She notes a deformity was found on L5 but couldn't remember what it was. She has a past medical history of chronic kidney disease, CVA, diabetes, hyper lipidemia, hypertension, sleep apnea, numbness right side, asthma Future Testing and Treatments Planned MRI scheduled Treatment Goals Patient/Caregiver Goals to decrease pain levels and decrease sciatic symptoms Current Functional Impairments (Reported) Functional Limitations- ADL's limited in sitting duration Functional Limitations- Mobility/Gait pain with walking PT-OP-C Subjective Start: 08/10/18 15:23 Freq: Status: Active Protocol: Document 09/18/18 08:22 EA (Rec: 09/18/18 09:08 EA [id number]) OP-PT Subjective Patient Comments Patient Comments Pt reports low back pain comes and goes; states at times no strength to left lower back. Pt reports if PT dont work out she will undergo MRI. PT-OP-F Manual Assessment Start: 08/10/18 15:23 Freq: Status: Active Protocol: Document 08/10/18 15:26 AMH (Rec: 08/10/18 15:54 AMH [email or web address]) Manual Assessments Soft Tissue Assessment Soft Tissue Mobility Assessment very tight lower back musculature with visable guarding in the lumbar paraspinals Joint Mobility Assessment Joint Mobility Assessment the lumbar spine is visable held in a hyperextended position at L4-L5 elevated right pelvis in standing + SI dysfunction with march test, left leg shorter in supine PT-OP-K Range of Motion Start: 08/10/18 15:23 Freq: Status: Active Protocol: Document 08/10/18 15:26 AMH (Rec: 08/10/18 15:54 AMH [email or web address]) Lumbar Spine Range of Motion Lumbar Spine Active Testing Position Standing Flexion 30 Extension 0 Rotation Left 15 Rotation Right 15 Lateral Flexion Left 15 Lateral Flexion Right 20 ROM Limitations Soft Tissue Tightness Contracture Pain Comments very limited lumbar spine ROM , pain increased with extension and sidebend left PT-OP-L Special Tests Start: 08/10/18 15:54 Freq: Status: Active Protocol: Document 08/10/18 15:55 AMH (Rec: 08/10/18 15:55 AMH [email or web address]) Special Tests Lumbar Spine Special Tests Straight Leg Raise Test Results + left 65 deg PT-OP-M Strength Start: 08/10/18 15:23 Freq: Status: Active Protocol: Document 08/10/18 15:26 AMH (Rec: 08/10/18 15:54 AMH [email or web address]) Hip Strength Hip Manual Muscle Testing Right Flexion (L2) 3 Fair Abduction 3 Fair Left Flexion (L2) 2 Poor Abduction 2+ Poor+ PT-OP-Q Treatments Start: 08/15/18 11:31 Freq: Status: Active Protocol: Document 09/18/18 08:22 EA (Rec: 09/18/18 09:08 EA [id number]) Cardio Equipment Recumbent Stepper (Sci-Fit) Duration (Minutes) 7 Resistance 2 Seat Position 12 Therapeutic Exercises Supine Exercises 4 Supine Exercise Name resisted hip fall out to L Reps/Minutes 10 x 2 3 Supine Exercise Name PPT with SLR Reps/Minutes x 5 reps x 5 sets 2 Supine Exercise Name PPT Reps/Minutes x 5SH x 5 reps 1 Supine Exercise Name Trunk rotation Reps/Minutes 12 Sidelying Exercises TA bracing Sidelying Exercise Name Belly button to spine Side left Reps/Minutes 6 Comments Held on L side due to increase pain Sitting Exercises 1 Sitting Exercise Name Fwd bend with right rotation Reps/Minutes x 5 SH x 10 reps Comments Lower table heigth Lumbar flexion Sitting Exercise Name 1) Rounding low back, 2) reaching for floor Reps/Minutes x 10 reps x 5 SH Comments STM: rolling to left lower back while leaing forward Standing Exercises R trunk Rotation Standing Exercise Name R trunk Rotation Comments UE support on table R trunk SB Standing Exercise Name R trunk SB Comments UE support on table Other Exercises Transfer practice Other Exercise Name Sit to sidelie Side right Comments Good response Manual Therapy Treatment Soft Tissue Mobilization 1 Body Location Left paralumbars; SI joint Mobilization Type Rolling Sustained Pressure Trigger Point Release Intensity/Depth Moderate Body Position Sitting on EOB Comments along with trunk L rotation and R SB PT-OP-R Modalities Start: 08/10/18 15:23 Freq: Status: Active Protocol: Document 09/18/18 08:22 EA (Rec: 09/18/18 09:08 EA [id number]) Electric Stimulation Electric Stimulation Interferential Current (IFC) Body Location left sacral region and low back Duration (Minutes) 15 Contraction Type Normal Patient Position Sitting Combined With Heat/Cold Cold Pack Ultrasound Therapy Treatment L LBP/SIJ Treatment Duration (minutes) 5 Patient Position Sidelying Coupling Medium Ultrasound Gel Applicator Size (cm2) 5 Frequency Setting (mHz) 1 Mode Setting Pulsed Intensity Setting (w/cm2) 1.5 PT-OP-T Assessment and Plan Start: 08/10/18 15:23 Freq: Status: Active Protocol: Document 09/18/18 08:22 EA (Rec: 09/18/18 09:08 EA [id number]) Physical Therapy Assessment Assessment Summary Assessment Pt cont. to show difficulty with PPT and that why cues is important in engaging TA's in all activity to decrease lumbar curve.; patient is educated with the importance of excess body weight to her back problem. Physical Therapy Plan Next Visit Focus/Plan Next Note Type Treatment Note Next Visit Plan cont to trunk segmental control with engagement of turnk stabilizers
--- NOTE | 2018-09-26 10:36 | PT.OTN ---
Current Diagnoses Sciatica, left side (09/26/18) Physical Therapy Treatment Note PT-OP-A Visit Information Start: 08/10/18 15:23 Freq: Status: Active Protocol: Document 09/26/18 08:49 EA (Rec: 09/26/18 08:58 EA [email or web address]) Out-Patient Physical Therapy Visit Information Visit Information Visit Type Treatment Note Visit Start Time 08:15 Visit Stop Time 09:00 Total Visit Minutes 45 Visit Number 10 Number of SURG NURSE Visits 1 PT-OP-B Current Condition Start: 08/10/18 15:23 Freq: Status: Active Protocol: Document 08/10/18 15:26 AMH (Rec: 08/10/18 15:54 AMH [email or web address]) Current Condition History of Current Condition Onset Date chronic LBP but newer onset of left sciatica in the past year Current Complaints pain rated 8/10 left sacrum and low back with sciatica to posterior thigh History of Current Condition 53 year old female with c/o left sided sciatic pain that has become worse in the past year. She rates her pain as 8 /10 and it is L>R sacrum region with referred pain down the left posterior thigh to the knee. She suffered a CVA with right sided residual weakness 4 years ago and at that time she began walking with a cane for support. She is walking with the cane in her right hand right now due to her left sided pain. She reports that she has begun falling recently due to the pain and leg giving out on the left side. She has had a xray which she will bring in and is scheduled for a MRI. She notes a deformity was found on L5 but couldn't remember what it was. She has a past medical history of chronic kidney disease, CVA, diabetes, hyper lipidemia, hypertension, sleep apnea, numbness right side, asthma Future Testing and Treatments Planned MRI scheduled Treatment Goals Patient/Caregiver Goals to decrease pain levels and decrease sciatic symptoms Current Functional Impairments (Reported) Functional Limitations- ADL's limited in sitting duration Functional Limitations- Mobility/Gait pain with walking PT-OP-C Subjective Start: 08/10/18 15:23 Freq: Status: Active Protocol: Document 09/26/18 08:49 EA (Rec: 09/26/18 08:58 EA [id number]) OP-PT Subjective Patient Comments Patient Comments Pt reports woke up this morning and pain low back is quite high; states maybe she slept wrong. Pt refused to goo E.R as she knows that most medication won't allowed her. Patient also mentined that she will be seeing her doctor this September 28 to know if MRI is needed. Patient Reported Progress Same PT-OP-F Manual Assessment Start: 08/10/18 15:23 Freq: Status: Active Protocol: Document 08/10/18 15:26 AMH (Rec: 08/10/18 15:54 AMH [email or web address]) Manual Assessments Soft Tissue Assessment Soft Tissue Mobility Assessment very tight lower back musculature with visable guarding in the lumbar paraspinals Joint Mobility Assessment Joint Mobility Assessment the lumbar spine is visable held in a hyperextended position at L4-L5 elevated right pelvis in standing + SI dysfunction with march test, left leg shorter in supine PT-OP-K Range of Motion Start: 08/10/18 15:23 Freq: Status: Active Protocol: Document 08/10/18 15:26 AMH (Rec: 08/10/18 15:54 AMH [email or web address]) Lumbar Spine Range of Motion Lumbar Spine Active Testing Position Standing Flexion 30 Extension 0 Rotation Left 15 Rotation Right 15 Lateral Flexion Left 15 Lateral Flexion Right 20 ROM Limitations Soft Tissue Tightness Contracture Pain Comments very limited lumbar spine ROM , pain increased with extension and sidebend left PT-OP-L Special Tests Start: 08/10/18 15:54 Freq: Status: Active Protocol: Document 08/10/18 15:55 AMH (Rec: 08/10/18 15:55 AMH [email or web address]) Special Tests Lumbar Spine Special Tests Straight Leg Raise Test Results + left 65 deg PT-OP-M Strength Start: 08/10/18 15:23 Freq: Status: Active Protocol: Document 08/10/18 15:26 AMH (Rec: 08/10/18 15:54 AMH [email or web address]) Hip Strength Hip Manual Muscle Testing Right Flexion (L2) 3 Fair Abduction 3 Fair Left Flexion (L2) 2 Poor Abduction 2+ Poor+ PT-OP-Q Treatments Start: 08/15/18 11:31 Freq: Status: Active Protocol: Document 09/26/18 08:49 EA (Rec: 09/26/18 08:58 EA [id number]) Therapeutic Exercises Sitting Exercises 2 Sitting Exercise Name SF,rotation ROM Reps/Minutes x 10 reps x 2 sets Lumbar flexion Sitting Exercise Name 1) Rounding low back, 2) reaching for floor Reps/Minutes x 10 reps x 5 SH Comments STM: rolling to left lower back while leaing forward Manual Therapy Treatment Soft Tissue Mobilization 1 Body Location Left paralumbars; SI joint Mobilization Type Rolling Sustained Pressure Trigger Point Release Intensity/Depth Moderate Body Position Sitting on EOB Comments along with trunk L rotation and R SB PT-OP-R Modalities Start: 08/10/18 15:23 Freq: Status: Active Protocol: Document 09/26/18 08:49 EA (Rec: 09/26/18 08:58 EA [id number]) Electric Stimulation Electric Stimulation Interferential Current (IFC) Body Location left sacral region and low back Duration (Minutes) 15 Contraction Type Normal Patient Position Sitting Combined With Heat/Cold Cold Pack PT-OP-T Assessment and Plan Start: 08/10/18 15:23 Freq: Status: Active Protocol: Document 09/26/18 08:49 EA (Rec: 09/26/18 08:58 EA [id number]) Physical Therapy Assessment Assessment Summary Assessment Decreased pain minimally after manual then ROM exercises. Patient is progressing slow at this time. Physical Therapy Plan Next Visit Focus/Plan Next Note Type Treatment Note Next Visit Plan ask about doctor consultation.
--- NOTE | 2019-07-23 12:07 | PT.OTN ---
Current Diagnoses Pain in right shoulder (09/26/18) Sciatica, left side (09/26/18) Unspecified injury of right shoulder and upper arm, initial encounter (09/26/18) Fall on same level, unspecified, initial encounter (09/26/18) Physical Therapy Treatment Note PT-OP-A Visit Information Start: 08/10/18 15:23 Freq: Status: Active Protocol: Document 09/26/18 08:49 EA (Rec: 09/26/18 08:58 EA [id number]) Out-Patient Physical Therapy Visit Information Visit Information Visit Type Treatment Note Visit Start Time 08:15 Visit Stop Time 09:00 Total Visit Minutes 45 Visit Number 10 Number of GAG WRITER Visits 1 PT-OP-B Current Condition Start: 08/10/18 15:23 Freq: Status: Active Protocol: Document 08/10/18 15:26 AMH (Rec: 08/10/18 15:54 AMH [email or web address]) Current Condition History of Current Condition Onset Date chronic LBP but newer onset of left sciatica in the past year Current Complaints pain rated 8/10 left sacrum and low back with sciatica to posterior thigh History of Current Condition 53 year old female with c/o left sided sciatic pain that has become worse in the past year. She rates her pain as 8 /10 and it is L>R sacrum region with referred pain down the left posterior thigh to the knee. She suffered a CVA with right sided residual weakness 4 years ago and at that time she began walking with a cane for support. She is walking with the cane in her right hand right now due to her left sided pain. She reports that she has begun falling recently due to the pain and leg giving out on the left side. She has had a xray which she will bring in and is scheduled for a MRI. She notes a deformity was found on L5 but couldn't remember what it was. She has a past medical history of chronic kidney disease, CVA, diabetes, hyper lipidemia, hypertension, sleep apnea, numbness right side, asthma Future Testing and Treatments Planned MRI scheduled Treatment Goals Patient/Caregiver Goals to decrease pain levels and decrease sciatic symptoms Current Functional Impairments (Reported) Functional Limitations- ADL's limited in sitting duration Functional Limitations- Mobility/Gait pain with walking PT-OP-C Subjective Start: 08/10/18 15:23 Freq: Status: Active Protocol: Document 09/26/18 08:49 EA (Rec: 09/26/18 08:58 EA [id number]) OP-PT Subjective Patient Comments Patient Comments Pt reports woke up this morning and pain low back is quite high; states maybe she slept wrong. Pt refused to goo E.R as she knows that most medication won't allowed her. Patient also mentined that she will be seeing her doctor this September 28 to know if MRI is needed. Patient Reported Progress Same PT-OP-F Manual Assessment Start: 08/10/18 15:23 Freq: Status: Active Protocol: Document 08/10/18 15:26 AMH (Rec: 08/10/18 15:54 AMH [email or web address]) Manual Assessments Soft Tissue Assessment Soft Tissue Mobility Assessment very tight lower back musculature with visable guarding in the lumbar paraspinals Joint Mobility Assessment Joint Mobility Assessment the lumbar spine is visable held in a hyperextended position at L4-L5 elevated right pelvis in standing + SI dysfunction with march test, left leg shorter in supine PT-OP-K Range of Motion Start: 08/10/18 15:23 Freq: Status: Active Protocol: Document 08/10/18 15:26 AMH (Rec: 08/10/18 15:54 AMH [email or web address]) Lumbar Spine Range of Motion Lumbar Spine Active Testing Position Standing Flexion 30 Extension 0 Rotation Left 15 Rotation Right 15 Lateral Flexion Left 15 Lateral Flexion Right 20 ROM Limitations Soft Tissue Tightness, Contracture,Pain Comments very limited lumbar spine ROM , pain increased with extension and sidebend left PT-OP-L Special Tests Start: 08/10/18 15:54 Freq: Status: Active Protocol: Document 08/10/18 15:55 AMH (Rec: 08/10/18 15:55 AMH [email or web address]) Special Tests Lumbar Spine Special Tests Straight Leg Raise Test Results + left 65 deg PT-OP-M Strength Start: 08/10/18 15:23 Freq: Status: Active Protocol: Document 08/10/18 15:26 AMH (Rec: 08/10/18 15:54 AMH [email or web address]) Hip Strength Hip Manual Muscle Testing Right Flexion (L2) 3 Fair Abduction 3 Fair Left Flexion (L2) 2 Poor Abduction 2+ Poor+ PT-OP-Q Treatments Start: 08/15/18 11:31 Freq: Status: Active Protocol: Document 09/26/18 08:49 EA (Rec: 09/26/18 08:58 EA [id number]) Therapeutic Exercises Sitting Exercises 2 Sitting Exercise Name SF,rotation ROM Reps/Minutes x 10 reps x 2 sets Lumbar flexion Sitting Exercise Name 1) Rounding low back, 2) reaching for floor Reps/Minutes x 10 reps x 5 SH Comments STM: rolling to left lower back while leaing forward Manual Therapy Treatment Soft Tissue Mobilization 1 Body Location Left paralumbars; SI joint Mobilization Type Rolling,Sustained Pressure, Trigger Point Release Intensity/Depth Moderate Body Position Sitting on EOB Comments along with trunk L rotation and R SB PT-OP-R Modalities Start: 08/10/18 15:23 Freq: Status: Active Protocol: Document 09/26/18 08:49 EA (Rec: 09/26/18 08:58 EA [id number]) Electric Stimulation Electric Stimulation Interferential Current (IFC) Body Location left sacral region and low back Duration (Minutes) 15 Contraction Type Normal Patient Position Sitting Combined With Heat/Cold Cold Pack PT-OP-T Assessment and Plan Start: 08/10/18 15:23 Freq: Status: Active Protocol: Document 07/23/19 12:06 AMH (Rec: 07/23/19 12:07 AMH [email or web address]) Physical Therapy Assessment Assessment Summary Assessment Decreased pain minimally after manual then ROM exercises. Patient is progresssing slow at this time. Physical Therapy Plan Discharge Physical Therapy Discharge Reasons No Longer Attending PT Discharge Comments pt has not been seen since last Sep 26
== END 2019-07-27 11:27 ==
LOC: PHYS 08:15
PROVIDERS: Family Provider Family Medicine; PCP Family Medicine; Visit Provider Neuromusculoskeletal Medicine & OMM
DX: M54.32 Sciatica, left side (principal); M25.511 Pain in right shoulder; S49.91XA Unspecified injury of right shoulder and upper arm, initial encounter; W18.30XA Fall on same level, unspecified, initial encounter
CPT/HCPCS: 97014; 97035; 97110; 97112; 97140; 97162; G0283

== ENCOUNTER → 2018-10-12 16:18 | Outpatient (CLI) | payer OTHER, MEDICAID, SELFPAY ==
[2018-10-12 17:51] LABS: Blood Urea Nitrogen 26 mg/dL (7-17); Carbon Dioxide 33 mmol/L (22-32); Chloride 95 mmol/L (98-107); Estimated Glomerular Filt Rate 43.2 mL/min (>60); Glucose 274 mg/dL (70-100); HEMOLYSIS < 15 (0-50); Potassium 4.1 mmol/L (3.4-5.1); Sodium 136 mmol/L (137-145)
[2018-10-12 17:52] LABS: Creatinine Urine Random 64.5 mg/dL; Protein (Total) Urine Random 197 mg/dL (0-12); Protein Creatinine Ratio Urine 3.05 GRAM/24H
== END ==
PROVIDERS: PCP Family Medicine; Visit Provider Student in an Organized Health Care Education/Training Program
DX: N05.9 Unspecified nephritic syndrome with unspecified morphologic changes (principal); R80.9 Proteinuria, unspecified
CPT/HCPCS: 36415; 80048; 82570; 84156

== ENCOUNTER → 2018-10-22 14:34 | Outpatient (CLI) | payer OTHER, MEDICAID, SELFPAY | PROVIDERS: Family Provider Family Medicine; PCP Family Medicine; Visit Provider Physician Assistant | DX: N39.0 Urinary tract infection, site not specified (principal) | CPT/HCPCS: 87077; 87086; 87186 ==

== ENCOUNTER → 2018-11-02 16:25 | Outpatient (CLI) | payer OTHER, MEDICAID, SELFPAY ==
[2018-11-04 12:31] LABS: Free Kappa/ Lambda Ratio 1.23 (0.26-1.65); Free Lambda 30.8 mg/L (5.7-26.3)
== END ==
PROVIDERS: Family Provider Family Medicine; PCP Family Medicine; Visit Provider Student in an Organized Health Care Education/Training Program
DX: R80.9 Proteinuria, unspecified (principal)
CPT/HCPCS: 36415; 83883

== ENCOUNTER → 2018-12-13 16:26 | Outpatient (CLI) | payer OTHER, MEDICAID, SELFPAY ==
[2018-12-13 17:18] LABS: Hematocrit 35.5 % (36-46); Hemoglobin 11.6 g/dL (12.0-16.0)
[2018-12-13 17:32] LABS: Blood Urea Nitrogen 22 mg/dL (7-17); Carbon Dioxide 32 mmol/L (22-32); Chloride 93 mmol/L (98-107); Estimated Glomerular Filt Rate 58.5 mL/min (>60); Glucose 238 mg/dL (70-100); HEMOLYSIS < 15 (0-50); Potassium 4.4 mmol/L (3.4-5.1); Sodium 134 mmol/L (137-145)
[2018-12-13 17:41] LABS: Creatinine Urine Random 29.2 mg/dL; Protein (Total) Urine Random 90 mg/dL (0-12); Protein Creatinine Ratio Urine 3.08 GRAM/24H
[2018-12-16 15:14] LABS: Parathyroid Hormone Int 137 pg/mL (14-64)
== END ==
PROVIDERS: Family Provider Family Medicine; PCP Family Medicine; Visit Provider Student in an Organized Health Care Education/Training Program
DX: N05.9 Unspecified nephritic syndrome with unspecified morphologic changes (principal); D64.9 Anemia, unspecified; N25.81 Secondary hyperparathyroidism of renal origin; R80.9 Proteinuria, unspecified
CPT/HCPCS: 36415; 80048; 82570; 83970; 84156; 85014; 85018

== ENCOUNTER → 2019-05-04 16:48 | Outpatient (CLI) | payer OTHER, MEDICAID, SELFPAY ==
[2019-05-04 17:47] LABS: Hematocrit 35.8 % (36-46); Hemoglobin 11.7 g/dL (12.0-16.0)
[2019-05-04 18:05] LABS: Blood Urea Nitrogen 18 mg/dL (7-17); Calcium 9.7 mg/dL (8.4-10.2); Carbon Dioxide 31 mmol/L (22-32); Chloride 97 mmol/L (98-107); Creatinine Urine Random 19.2 mg/dL; Estimated Glomerular Filt Rate > 60.0 mL/min (>60); Glucose 109 mg/dL (70-100); HEMOLYSIS 23 (0-50); Potassium 4.2 mmol/L (3.4-5.1); Protein (Total) Urine Random 110 mg/dL (0-12); Protein Creatinine Ratio Urine 5.72 GRAM/24H; Sodium 137 mmol/L (137-145)
[2019-05-04 18:32] LABS: HEMOLYSIS < 15 (0-50); Iron 45 ug/dL (37-170)
[2019-05-04 19:15] LABS: Percent Iron Saturation 16 % (15-50); Total Iron Binding Capacity 288 ug/dL (265-497); Transferrin 236 mg/dL (206-381)
== END ==
PROVIDERS: PCP Family Medicine; Visit Provider Student in an Organized Health Care Education/Training Program
DX: N05.9 Unspecified nephritic syndrome with unspecified morphologic changes (principal); D50.0 Iron deficiency anemia secondary to blood loss (chronic); D64.9 Anemia, unspecified; N25.81 Secondary hyperparathyroidism of renal origin; R80.9 Proteinuria, unspecified
CPT/HCPCS: 36415; 80048; 82570; 82728; 83540; 83550; 83970; 84156; 85014; 85018